=== PATIENT | female | born 1995 | race Caucasian/White ===

== ENCOUNTER 2025-05-29 22:31 | Emergency (ER) | payer OTHER, SELFPAY ==
[2025-05-29 22:32] VITALS: BP 105/65; PULSE 69; RESP 18; TEMP 36.9; O2SAT 100; BMI 20.2
--- NOTE | 2025-05-29 22:44 | US_ITS ---
PROCEDURE: TRANSVAGINAL W/PREG US 05/29/2025 REASON FOR EXAM: VAGINAL BLEEDING IN TECHNIQUE: Procedure Code: USTVAGP Modality: US Procedure: TRANSVAGINAL W/PREG US COMPARISON: None. FINDINGS GESTATION: Elongated, single intrauterine gestational sac with a mean diameter of 21.0 mm. Amorphous embryonic pole identified with a mean crown rump length of 5.0 mm. No cardiac activity identified. Normal appearing yolk sac present. LMP gestational age: 8 weeks 4 days LMP HEATHER: January 04, 2026 Sonographic gestational age: 6 weeks 5 days Sonographic HEATHER: January 17, 2026 UTERUS: Unremarkable. Heterogeneous 1.1 x 1.3 x 1.3 cm right anterior subserosal lesion. CERVIX: Fluid is present in the cervical canal. OVARIES: Right ovary measures 1.6 x 2.1 x 1.2 cm with a volume of 2.1 mL. Left ovary measures 2.9 x 3.4 x 2.5 cm with a volume of 12.7 mL. Anechoic 1.9 x 2.2 x 2.2 cm left ovarian follicle/corpus luteum. Doppler evaluation confirms bilateral ovarian blood flow. No adnexal mass. FREE FLUID: No free fluid. US/Transvaginal w/Preg US IMPRESSION: 1. Single intrauterine with an EGA of 6 weeks 5 days. No card iac activity, consistent with embryonic demise. 2. Small uterine fibroid. Reading Location: [id number]
[2025-05-29 23:06] LABS: Mucous, Urine 0 SEEN /hpf (<or=2+); Red Blood Cells-Urine 0 SEEN /hpf (0-5); Squamous Epithelial Cells - UA 0 SEEN /hpf (5-10)
--- NOTE | 2025-05-29 23:08 | EDS_ITS ---
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 PFSH PFSH Home Medications ?Medication ?Instructions ?Recorded ?Last Taken ?Type vit no.95-ferrous 1 tab PO DAILY 05/29/25 Unk nown History fumarate 28 mg-folic acid 800 mcg tablet () Allergy/AdvReac Type Severity Reaction Status Date / Time No Known Allergies Allergy Verified 05/29/25 22:34 Surgical History (Updated 05/29/25 @ 23:12 by Rosibel Valerio) H/O breast augmentation Social History Smoking Status: Never smoker ROS ROS ED ROS Narrative Pertinent Positives: Confirmed IUP 8 weeks starting to have some vaginal bleeding Pertinent Negatives: Abdominal pain fevers chills bleeding disorders anticoagulation The remainder of review of systems negative unless otherwise stated in the HPI above. Systems reviewed including constitutional, psychiatric, cardiovascular, respiratory, integument, HENT, gastrointestinal. EXAM Physical Exam Narrative Exam Narrative: Patient is afebrile hemodynamically stable does not appear toxic or in distress she is normocephalic and atraumatic cranial nerves II through XII grossly intact. Abdomen is soft nontender nondistended Const Vital Signs: 05/29/25 22:32 Temperature 98.4 F Temperature Source Temporal Pulse Rate 69 Respiratory Rate 18 Blood Pressure 105/65 Blood Pressure Mean 78 Pulse Ox 100 Oxygen Delivery Method Room Air MDM MDM MDM Narrative Medical decision making narrative: Nursing notes, triage notes, available previous documentation, and vital signs were reviewed. Any discrepancies noted were addressed. Differential Diagnoses: Could be vaginal bleeding in early make sure that there is still heart rate or determine if this is possibly impending spontaneous threatened Labs Reviewed: No leukocytosis or leukopenia hemoglobin is 12.5 patient's quantitative hCG came back at 5980. Patient's urinalysis was without evidence of infection but does show blood Imaging Reviewed: Ultrasound shows single IUP with an estimated gestational age of 6 weeks 5 days no cardiac activity is consistent with embryonic demise there is a small uterine fibroid. Previous Documentation Reviewed: None available or applicable at this time. ED Course: Patient presenting with vaginal bleeding early patient has from around here she is active duty we will get a transvaginal ultrasound check some blood work and go from there. 05/30/2025 0018: Patient's transvaginal ultrasound showing evidence of embryonic demise. I had a conversation with the patient and her spouse gave them return precautions follow-up recommendations. Patient is in the middle of traveling they are going to [place] tomorrow. At this point in time patient is stable for discharge. This note was made utilizing voice recognition software. All attempts were made to correct spelling or other errors prior to note completion. However, due to the fast-paced nature of emergency medicine, some errors may still be present. Lab Data Labs: Laboratory Results - last 24 hr 05/29/25 05/29/25 22:51 22:55 WBC 5.4 RBC 4.09 L Hgb 12.5 Hct 35.2 L MCV 86.1 MCH 30.6 MCHC 35.5 RDW Std Deviation 40.0 RDW Coeff of Emily 12.9 Plt Count 145 L MPV 11.7 Immature Gran % (Auto) 0.400 Neut % (Auto) 41.7 L Lymph % (Auto) 46.3 H [place] % (Auto) 8.6 Eos % (Auto) 2.6 Baso % (Auto) 0.4 Absolute Neuts (auto) 2.2 Absolute Lymphs (auto) 2.48 Nucleated RBC % 0 HCG, Quant 5980 H Urine Color Yellow Urine Clarity Clear Urine pH 7.0 Ur Specific [place] 1.010 Urine Protein 15 H Urine Glucose (UA) Normal Urine Ketones Negative Urine Occult Blood 250 H Urine Nitrite Negative Urine Bilirubin Negative Urine Urobilinogen Normal Ur Leukocyte Esterase Negative Urine RBC 0 SEEN Urine WBC 0 SEEN Ur Squamous Epith Cells 0 SEEN Urine Bacteria 0 SEEN Urine Mucus 0 SEEN Blood Type O NEGATIVE Radiography Diagnostic Testing: Clinical Impression(s) from Imaging Studies Obstetrics Ultrasound 05/29/25 22:44 IMPRESSION: 1. Single intrauterine with an EGA of 6 weeks 5 days. No cardiac activity, consistent with embryonic demise. 2. Small uterine fibroid. Reading Location: [id number] Discharge Plan Triage Chief Complaint: Vag Bld, Preg ED Provider: Angel Yates Dx/Rx/DC Orders Clinical Impression: Vaginal bleeding affecting early , demise due to miscarriage, Threatened Instructions: Miscarriage Threatened Prescriptions: No Action PNV no.95-ferrous fumarate-FA [] 28 mg iron- 800 mcg tablet 1 tab PO DAILY Stand Alone Forms: ED Work / School Excuse Primary Care Provider: Care Physician,No Primary Referrals: NOT,DEFINED [Non-Staff, None] Activity Restrictions/Additional Instructions: We need to be mindful of developing fevers or worsening abdominal pain or vaginal bleeding if these things occur I would recommend that you go ahead and go to emergency department. I understand that you are currently traveling at this time. I would wear pads. You will need to get repeat quantitative hCG in 48 to 72 hours. I will write for an order but given that you are traveling out of state it is unlikely that they will fill this order so you can again get this study done at an emergency department as well if needed or [place] at a medical facility Print Language: [place] Disposition Disposition: Home, Self Care
[2025-05-29 23:11] LABS: Color, Urine Yellow (Yellow); Glucose, Dipstick Normal (Normal); Ketone-Dipstick Negative (Negative); Leukocyte Esterase-Dipstick Negative /ul (Negative); Nitrite-Dipstick Negative (Negative); Occult Blood-Urine 250 /ul (Negative); Protein-Dipstick 15 mg/dl (Negative); Specific Gravity, Urine 1.010 (1.002-1.030); Urine Bilirubin Dipstick Negative (Negative)
[2025-05-29 23:13] LABS: Hematocrit 35.2 % (37-47); Hemoglobin 12.5 g/dL (12.0-15.0); Immature Granulocytes Count 0.020 X10^3/uL (0.0-0.0); Mean Corp Hgb Conc 35.5 g/dL (32-36); Mean Corpuscular Volume 86.1 fL (81-99); Mean Platelet Vol. 11.7 fl (6.2-12.0); NRBC Flagged by Analyzer 0 % (0-5); Platelet Count 145 K/mm3 (150-450); RBC Distribution Width CV 12.9 % (11.6-14.6); RBC Distribution Width SD 40.0 fl (35.1-43.9); Red Blood Count 4.09 M/mm3 (4.2-5.4); White Blood Count 5.4 K/mm3 (4.4-11.0)
[2025-05-30 00:06] LABS: hCG Titer Quant., Serum 5980 mIU/mL (<9 non-preg)
[2025-05-30 00:48] VITALS: BP 128/78; PULSE 68; RESP 14; TEMP 36.8; O2SAT 100
== END 2025-05-30 00:48 | disposition home or self-care (01) ==
PROVIDERS: Emergency Provider Specialist/Technologist Athletic Trainer; Visit Provider Specialist/Technologist Athletic Trainer
DX: O02.1 Missed abortion (principal)
CPT/HCPCS: 76817; 81001; 84702; 85025; 86900; 86901; 99283; A4216